=== PATIENT | male | born 1960 | race Caucasian/White ===

== ENCOUNTER 2019-01-04 07:24 | Day surgery (SDC) | payer OTHER ==
[~2019-01-04] VITALS: Ht 165.1 cm; Wt 68.9 kg
[2019-01-04] VITALS (7 sets, daily range): BP systolic 104–121; BP diastolic 68–85
--- NOTE | 2019-01-04 07:46 | Anethesia Preoperative Eval ---
Anesthesia Pre-op PMH/ROS General Date of Evaluation: Jan 04, 2019 Time of Evaluation: 07:46 Anesthesiologist: lupillo ASA Score: ASA 2 Mallampati Score Class I : Soft palate, uvula, fauces, pillars visible Class II: Soft palate, uvula, fauces visible Class III: Soft palate, base of uvula visible Class IV: Only hard plate visible Mallampati Classification: Class II Surgeon: nayeli Diagnosis: colon screening Surgical Procedure: colonoscopy Anesthesia History: none Family History: no anesthesia problems Medications: see eMAR Patient NPO?: Yes Anesthesia Pre-op Phys. Exam Physician Exam Last Vital Signs Date Time Temp Pulse Resp B/P (MAP) Pulse Ox O2 Delivery O2 Flow Rate FiO2 01/04/19 07:56 98.1 94 20 121/85 98 Room Air Constitutional: NAD Neurologic: CN 2-12 intact Cardiovascular: RRR Respiratory: CTA Gastrointestinal: S/NT/ND Airway Exam Mallampati Score: Class II MO: full Neck: flexible TMD: 2fb ROM: full Anesthesia Pre-op A/P Risk Assessment & Plan Assessment: asa2 Plan: mac Status Change Before Surgery: No Pre-Antibiotics Drug: Sandi Narayan MD Jan 04, 2019 07:46
[2019-01-04] MEDS ORDERED: NKM (07:51)
[2019-01-04] MEDS ORDERED: Propofol 200mg/20ml IV ONE (08:00)
[2019-01-04] MEDS ORDERED: Lidocaine 1% MPF 10mg/ml 5ml ONE (08:00)
[2019-01-04] MEDS ORDERED: LR 1000ml ONE (08:00)
[2019-01-04] MEDS ORDERED: LR 1000ml 1,000 ML IVLG SCH (08:12)
[2019-01-04] MEDS ORDERED: Midazolam 2mg/2ml Inj IVP PRN (08:15)
[2019-01-04] MEDS ORDERED: DiphenhydrAMINE 50mg/ml Inj IVP PRN (08:15)
[2019-01-04] MEDS ORDERED: Atropine Sulfate 0.4mg/ml inj IVP PRN (08:15)
[2019-01-04] MEDS ORDERED: fentaNYL 100 mcg/2 mL IV PRN (08:15)
--- NOTE | 2019-01-04 08:15 | Short Stay Surgery H&P ---
History of Present Illness History of Present Illness Chief Complaint see attached typed noted HPI Randell Katz is a 58 year old male who was admitted on for Colon Screening Medication History Scheduled No Known Medications* (NKM - No Known Medications*), 0 ., (Reported) Physical Exam Vital Signs Last Vital Signs Date Time Temp Pulse Resp B/P (MAP) Pulse Ox O2 Delivery O2 Flow Rate FiO2 01/04/19 07:56 98.1 94 20 121/85 98 Room Air Plan Attestation Are the patient's medical conditions optimized for surgery? Anjali Gaspar MD Jan 04, 2019 08:15
--- NOTE | 2019-01-04 08:15 | Pre-Procedure Note/Attestation ---
Pre-Procedure Note/Attestation Complete Prior to Procedure Planned Procedure: not applicable Procedure Narrative: colon Indications for Procedure Pre-Operative Diagnosis: screen Attestation I attest that I discussed the nature of the procedure; its benefits; risks and complications; and alternatives (and the risks and benefits of such alternatives ), prior to the procedure, with the patient (or the patient's legal pharmaceutical sales representative). I attest that, if there was a reasonable possibility of needing a blood transfusion, the patient (or the patient's legal pharmaceutical sales representative) was given the [facility] standardized written summary, pursuant to the Matthew Joby Blood Safety Act ([place] Health and Safety Code # 1645, as amended). I attest that I re-evaluated the patient just prior to the surgery and that there has been no change in the patient's H&P, except as documented below: Anjali Gaspar MD Jan 04, 2019 08:15
--- NOTE | 2019-01-04 08:58 | Endoscopy Procedure Note ---
Endoscopy Procedure Note General Indication for Procedure: screen Procedures Performed: colonoscopy Operative Findings/Diagnosis: desc colon dim polyps at 40 and 30 - biopsied off Specimen: yes Pt Tolerated Procedure Well: No Estimated Blood Loss: none Anesthesia Anesthesiologist: Jarod Talbot Anesthesia: MAC Medications Medication Given: see anesthesia record Inserted Devices Implant(s) used?: No Quality Quality of Bowel Preparation: Excellent GI Core Measures 50 yrs or older w/o bx or poly: No 10yrs. F/U recommended: No If not recommended, why?: Above average risk 18 years or older w/prev. colo: Yes <3yrs. since last colonoscopy: No Med reason:<3 yrs.: System Reason:<3 yrs.: Last colonoscopy >= to 3yrs: Yes Anjali Gaspar MD Jan 04, 2019 08:58
--- NOTE | 2019-01-04 09:01 | Brief Operative Note ---
Immediate Post Operative Note Operative Note Chief Complaint: screen Pre-op Diagnosis: screen Procedure: colon bx Post-op Diagnosis: colon polyp, desc, at 30 and 40, bx off Surgeon: nayeli Anesthesiologist: Jarod Talbot Anesthesia: MAC Specimen: yes Complications: none Condition: stable Fluids: per anesth Estimated Blood Loss: none Drains: none Implant(s) used?: No Anjali Gaspar MD Jan 04, 2019 09:00
--- NOTE | 2019-01-04 09:35 | Immediate Post-Op Evaluation ---
Immediate Post-Op Evalulation Immediate Post-Op Evalulation Procedure: colonoscopy w/bx Date of Evaluation: Jan 04, 2019 Time of Evaluation: 09:13 IV Fluids: 500ml lr Blood Products: none Estimated Blood Loss: negligible Blood Pressure Systolic: 105 Blood Pressure Diastolic: 80 Pulse Rate: 98 Respiratory Rate: 18 O2 Sat by Pulse Oximetry: 99 Temperature (Fahrenheit): 97.1 Pain Score (1-10): 0 Nausea: No Vomiting: No Complications none Patient Status: awake, reacts, patent Hydration Status: adequate Drug: Sandi Narayan MD Jan 04, 2019 09:35
--- NOTE | 2019-01-04 09:36 | 48 Hour Post Anesthesia Eval ---
Post Anesthesia Evaluation Procedure: colonoscopy w/bx Date of Evaluation: Jan 04, 2019 Time of Evaluation: 09:15 Blood Pressure Systolic: 104 0: 75 Pulse Rate: 81 Respiratory Rate: 18 Temperature (Fahrenheit): 97.1 O2 Sat by Pulse Oximetry: 99 Airway: patent Nausea: No Vomiting: No Pain Intensity: 0 Hydration Status: adequate Cardiopulmonary Status: stable Mental Status/LOC: patient returned to baseline Post-Anesthesia Complications: none Follow-up care needed: N/A Sandi Martin MD Jan 04, 2019 09:36
--- NOTE | 2019-01-04 20:30 | Operative Note - Dictated ---
DATE OF OPERATION: 01/04/2019 GASTROENTEROLOGY PROCEDURE PROCEDURE: Screening colonoscopy. SURGEON: Anjali Gaspar M.D. ANESTHESIA: Please see the separate anesthesiologist notes for details. PRE-ENDOSCOPIC DIAGNOSIS: Screening. POST-ENDOSCOPIC DIAGNOSES: 1. Two colonic polyps seen in the descending colon, status post biopsy removal. 2. Normal terminal ileum. 3. Redundant colon. DESCRIPTION OF PROCEDURE: The procedure, its risks, indications, alternatives, and possible complications were explained to the patient and informed consent was obtained. The diagnostic colonoscope was introduced into the rectum and advanced to 10 cm into the terminal ileum. The colonoscope was then gradually withdrawn and the mucosa examined carefully. Findings are reported as above. Retroflexed view of the rectum was unremarkable. The colonoscope was removed and the patient was sent to recovery in good condition. COMPLICATIONS: None. RECOMMENDATIONS: 1. Follow up biopsy results. 2. Outpatient followup. 3. Repeat colonoscopy in 5 years. Anjali Gaspar M.D. DR: DANNI JOB#: [id number] CC:
== END 2019-01-04 10:10 | disposition home or self-care (01) ==
LOC: GAS 07:24
DX: Z12.11 Encounter for screening for malignant neoplasm of colon (principal); K63.5 Polyp of colon; D12.4 Benign neoplasm of descending colon
CPT/HCPCS: 45380; J2704; 94003; 94150